=== PATIENT | female | born 1960 | race Caucasian/White ===

== ENCOUNTER → 2018-11-22 | Outpatient (REF) | payer BC ==
[~2018-11-22] VITALS: Ht 149.9 cm; Wt 74.4 kg
[~2018-11-22] MED LIST: ALOE VER PO; AMITRIPTYLIN25 MG PO; AMOXICILLIN/CL875 MG PO; AMOXICILLIN500 MG PO; ATORVASTATIN CA10 MG PO; AUGMENTIN875TAB PO; B12 FAST DIS5000 MCG SL; B12-ACTIVE1 MG; BIOTIN MAXI10000 MCG PO; BIOTIN1000 MCG; CALCIUM + D600 MG PO; CALCIUM MAGN PO; CALCIUM PO; CIPRO500 MG PO; CLARITIN10 MG PO; DIABETA2.5 MG PO; DIFLUCAN150 MG PO; ELAVIL25 MG PO; EQL IBUPROFEN200 M1 PO; ESTRACE VAG0.1 MG/GM VA; GLIPIZIDE ER2.5 MG PO; GLIPIZIDE5 M2 PO; GLUCOTROL10 MG PO; LANTUS100 UNIT/M SC; LATANOPROST0.005 % OU; LEVOTHROID50 MCG OR; LEVOTHYROXIN75 MCG PO; LISINOPRIL10 MG PO; LISINOPRIL2.5 MG PO; LOPID600 MG PO; LOPRESSOR25 MG PO; LORTAB 10-325 M1 TAB PO; MAG OXIDE400 MG PO; MEDDOSEPAK PO; METFORMIN1000 MG PO; METFORMIN500 M1 OR; METFORMIN500 MG PO; METFORMIN850 MG PO; MILK THISTLE140 M1; MULTI VITAMN OR; NAPROXEN500 MG PO; NORCO1 TA1 PO; PRAVASTATIN10 MG PO; PREMARIN1.25 MG; PRILOSEC10 MG OR; PRILOSEC20 MG/CAP PO; PROCHIEVE4 %; TOBRAMYCIN0.3 % OU; TRAMADOL HCL50 MG PO; TURMERI1; VAGIFEM10 MCG VA; VAGIFEM25 MCG VA; VASCEPA1 GM PO; VISION FORMULA/LUTEI; VISION FORMULA/LUTEI PO; VITAMIN D32000 UNIT PO; ZESTRIL/PRINIV2.5 MG PO; ZINC GLUCONATE50 MG PO; ZINC50 MG PO; [UNRECOGNIZED DRUG - OTHER] PO
[2018-11-22 14:33] VITALS: BP 127/85
== END | disposition home or self-care (01) | DRG 951 ==
LOC: ORM 09:00 → PO 09:00
PROVIDERS: ATTEND Internal Medicine Gastroenterology
DX: Z01.818 Encounter for other preprocedural examination (principal); Z86.010 Personal history of colon polyps; Z80.0 Family history of malignant neoplasm of digestive organs; K21.9 Gastro-esophageal reflux disease without esophagitis; E11.9 Type 2 diabetes mellitus without complications; I10 Essential (primary) hypertension; R19.7 Diarrhea, unspecified; J45.909 Unspecified asthma, uncomplicated; E03.9 Hypothyroidism, unspecified; Z90.49 Acquired absence of other specified parts of digestive tract; Z90.710 Acquired absence of both cervix and uterus; Z98.890 Other specified postprocedural states

== ENCOUNTER 2018-11-24 05:59 | Day surgery (SDC) | payer BC ==
[~2018-11-24] VITALS: Ht 152.4 cm; Wt 72.6 kg
[2018-11-24 09:28] VITALS: BP 108/59
== END 2018-11-24 09:42 | disposition home or self-care (01) | DRG 392 ==
LOC: ENDO 05:59 → ORM 07:00 → ENDO 07:30 → ORM 18:15 → ENDO 18:15
PROVIDERS: ATTEND Internal Medicine Gastroenterology
PROC: 0DB98ZX Excision of Duodenum, Via Natural or Artificial Opening Endoscopic, Diagnostic (ICD-10-PCS; principal; 2018-11-24)
PROC: 0DB78ZX Excision of Stomach, Pylorus, Via Natural or Artificial Opening Endoscopic, Diagnostic (ICD-10-PCS; 2018-11-24)
PROC: 0DB48ZX Excision of Esophagogastric Junction, Via Natural or Artificial Opening Endoscopic, Diagnostic (ICD-10-PCS; 2018-11-24)
PROC: 0DBE8ZX Excision of Large Intestine, Via Natural or Artificial Opening Endoscopic, Diagnostic (ICD-10-PCS; 2018-11-24)
DX: R19.7 Diarrhea, unspecified (principal); K21.9 Gastro-esophageal reflux disease without esophagitis; K29.50 Unspecified chronic gastritis without bleeding; K44.9 Diaphragmatic hernia without obstruction or gangrene; K31.7 Polyp of stomach and duodenum; K31.9 Disease of stomach and duodenum, unspecified; K57.30 Diverticulosis of large intestine without perforation or abscess without bleeding; K64.8 Other hemorrhoids; K64.4 Residual hemorrhoidal skin tags; I10 Essential (primary) hypertension; E11.9 Type 2 diabetes mellitus without complications; J45.909 Unspecified asthma, uncomplicated; E03.9 Hypothyroidism, unspecified; Z86.010 Personal history of colon polyps; Z80.0 Family history of malignant neoplasm of digestive organs; Z79.899 Other long term (current) drug therapy

== ENCOUNTER 2023-09-20 06:58 | Day surgery (SDC) | payer BC ==
[~2023-09-20] VITALS: Ht 152.4 cm; Wt 67.1 kg
[~2023-09-20 06:58] MED LIST changes: +ACTOS15 MG PO; +ASPIRINCHW 81MG PO; +COQ-1030 M1 PO; +ELAVIL25 M1 PO; +FLUTICASONE0.05 % EX; +IBUPROFEN200 MG PO; +JARDIANCE10 MG; +MACULAR HEALTH1 CAP; +MOUNJARO2.5 MG SC; +NIACIN ER1000 MG; +OMEGA 31000 MG PO; +TRULICITY3 MG/0.5 M
[2023-09-20 09:14] VITALS: BP 115/75
== END 2023-09-20 11:19 | disposition home or self-care (01) | DRG 951 ==
LOC: ENDO 06:58 → ORM 08:00 → ENDO 08:00
PROVIDERS: ATTEND Surgery
PROC: 0DBP8ZX Excision of Rectum, Via Natural or Artificial Opening Endoscopic, Diagnostic (ICD-10-PCS; principal; 2023-09-20)
PROC: 0DB48ZX Excision of Esophagogastric Junction, Via Natural or Artificial Opening Endoscopic, Diagnostic (ICD-10-PCS; 2023-09-20)
DX: Z12.11 Encounter for screening for malignant neoplasm of colon (principal); K62.1 Rectal polyp; K64.8 Other hemorrhoids; K21.9 Gastro-esophageal reflux disease without esophagitis; K44.9 Diaphragmatic hernia without obstruction or gangrene; E11.9 Type 2 diabetes mellitus without complications; Z80.0 Family history of malignant neoplasm of digestive organs; Z79.84 Long term (current) use of oral hypoglycemic drugs